=== PATIENT | female | born 1980 | race Caucasian/White ===

== ENCOUNTER → 2019-06-16 | Outpatient (CLI) | payer OTHER | LOC: BC 11:44 | DX: Z12.31 Encounter for screening mammogram for malignant neoplasm of breast (principal) ==

== ENCOUNTER → 2019-06-21 | Outpatient (CLI) | payer OTHER | LOC: RAD 01:55 | DX: N60.02 Solitary cyst of left breast (principal); R92.2 Inconclusive mammogram ==

== ENCOUNTER → 2019-07-04 | Outpatient (CLI) | payer OTHER | LOC: ULTRA 09:34 | DX: I10 Essential (primary) hypertension (principal); I15.0 Renovascular hypertension; E66.01 Morbid (severe) obesity due to excess calories; J30.2 Other seasonal allergic rhinitis; E55.9 Vitamin D deficiency, unspecified; R51 Headache; H53.9 Unspecified visual disturbance; Z12.39 Encounter for other screening for malignant neoplasm of breast; Z82.49 Family history of ischemic heart disease and other diseases of the circulatory system ==

== ENCOUNTER 2020-05-17 13:55 | Emergency (ER) | payer OTHER ==
[~2020-05-17] VITALS: Ht 157.5 cm; Wt 90.7 kg
[2020-05-17] MEDS ORDERED: HYDROCHLOROTHIA25 M2 PO (14:17)
[2020-05-17] MEDS ORDERED: METOPROLOL SUC100 MG PO (14:17)
[2020-05-17] MEDS ORDERED: ALPRAZOLAM 0.0.25 M1 PO (14:17)
[2020-05-17] MEDS ORDERED: CELEXA 20 MG TA20 MG PO (14:17)
[2020-05-17 14:47] LABS: ABSOLUTE NEUTROPHILS 5.2 thou/uL (1.4-8.2); BASOPHILS 0.8 % (0.0-2.0); EOSINOPHILS 2.1 % (0.0-3.0); HEMATOCRIT 37.2 % (37.0-47.0); HEMOGLOBIN 11.4 gm/dL (12.0-15.0); LYMPHOCYTES 27.9 % (24.0-44.0); MCH 22.8 pg (26.0-34.0); MCHC 30.7 g/dL (28.0-37.0); MONOCYTES 7.1 % (1.0-8.0); PLATELET COUNT 320 thou/uL (150-400); POLYS 62.1 % (36.0-66.0); RBC 5.02 mil/uL (4.20-5.00); RDW 17.1 % (10.5-14.5); WBC 8.3 thou/uL (4.0-11.0)
[2020-05-17 15:04] LABS: ANION GAP 8 mmol/L (7-16); BUN 13 mg/dL (7-18); CALCIUM 8.9 mg/dL (8.5-10.1); CHLORIDE 107 mmol/L (98-107); CO2 27 mmol/L (21-32); CREATININE 0.9 mg/dL (0.6-1.0); GLUCOSE 92 mg/dL (74-106); POTASSIUM 3.7 mmol/L (3.5-5.1); SALICYLATE < 2.8 mg/dL (2.8-20.0); SODIUM 142 mmol/L (136-145)
[2020-05-17 15:06] LABS: AMP/METHAMP Negative (Negative); BARBITURATES Negative (Negative); BENZODIAZEPINES Negative (Negative); COCAINE Negative (Negative); METHADONE Negative (Negative); OPIATES Negative (Negative); PCP Negative (Negative)
[2020-05-17 15:54] LABS: ANISOCYTOSIS 1+; HYPOCHROMASIA 1+; MICROCYTES 1+
[2020-05-17 18:23] VITALS: BP 122/80
== END 2020-05-17 18:23 | disposition home or self-care (01) ==
LOC: ER 13:55
PROVIDERS: Nurse Practitioner
DX: F32.9 Major depressive disorder, single episode, unspecified (principal); Z79.899 Other long term (current) drug therapy; Z88.8 Allergy status to other drugs, medicaments and biological substances; Z91.013 Allergy to seafood

== ENCOUNTER → 2020-05-23 | Outpatient (CLI) | payer OTHER ==
[~2020-05-23] MED LIST: ALPRAZOLAM 0.0.25 M1 PO; CELEXA 20 MG TA20 MG PO; HYDROCHLOROTHIA25 M2 PO; METOPROLOL SUC100 MG PO
== END ==
LOC: ULTRA 10:12
PROVIDERS: ATTEND Nurse Practitioner
DX: N60.02 Solitary cyst of left breast (principal)